=== PATIENT | female | born 1930 | race Caucasian/White ===

== ENCOUNTER 2019-11-15 13:33 | Outpatient (CLI) | payer MEDICARE, MEDICAID ==
--- NOTE | 2019-11-15 15:33 | ULT ---
TRANSABDOMINAL AND ENDOVAGINAL PELVIC ULTRASOUND: HISTORY: Fluid in the endometrium. TECHNIQUE: Transabdominal and endovaginal imaging of the pelvis is performed. FINDINGS: Uterus is identified measuring 5.1 x 2.9 x 4.4 cm. Endovaginal images demonstrate anechoic focus, lik ema within the endometrial canal. Anechoic focus measures 1.72 cm. No free fluid in the left or right adnexa. IMPRESSION: Limited evaluation of the uterus. There appears to be a fluid collection, which may be in the endomet rium. Better interrogation with pelvic MRI is recommended. CODE T Transcribed Date/Time: 11/15/2019 3:53 PM
--- NOTE | 2019-11-15 15:52 | MRI ---
MRI LUMBAR SPINE WITHOUT CONTRAST: 09/14/20 INDICATIONS: Right foot drop. Right hip pain. FINDINGS: There are moderate degenerative changes throughout the lumbar spine. Degenerative disc changes at al l levels with mild loss of disc height at all levels. The lumbar vertebrae maintain height in sagittal plane. There is mild scoliotic curvature with convex ity to the right. At T12-L1, mild disc bulge flattens the anterior thecal sac. No central canal or foraminal stenosis. At L1-2, mild diffuse disc bulge flattens the anterior thecal sac. Mild facet hypertrophy. Mild centr al canal stenosis. Mild bilateral foraminal stenosis. At L2-3, annular fissure with broad based disc bulge. Moderate facet hypertrophy. Mild central canal stenosis. Left foraminal stenosis. At L3-4, mild diffuse disc bulge. Prominent facet and ligamentous hypertrophy. Mild to moderate centr al canal stenosis. Left foraminal stenosis. At L4-5, slight anterolisthesis. Diffuse disc bulge. Prominent facet and ligamentous hypertrophy. Mod erate central canal stenosis. Left foraminal stenosis. There is a small synovial cyst seen in the pos terior spinal canal centrally measuring approximately 5 mm. At L5-S1, annular fissure with central disc protrusion. Congenitally small thecal sac. Mild central c anal stenosis. Disc osteophyte complex is seen projecting laterally on the left and paracentrally on the right. Left foraminal stenosis due to this disc osteophyte complex and facet hypertrophy. Incidentally noted is edema within distal sacrum which is inadequately evaluated. Sacral fracture is suspected. IMPRESSION: 1. 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 2. Evidence of sacral fracture. Recommend MRI of pelvis. Discussed with Dr. Casas POS: [facility]
== END 2019-11-15 13:34 | disposition home or self-care (01) ==
LOC: BICMRI 13:33
PROVIDERS: ATTEND Student in an Organized Health Care Education/Training Program
DX: M21.371 Foot drop, right foot (principal); M47.9 Spondylosis, unspecified; R29.898 Other symptoms and signs involving the musculoskeletal system; N85.9 Noninflammatory disorder of uterus, unspecified
CPT/HCPCS: 72148; 76856